=== PATIENT | male | born 1990 | race African-American/Black ===

== ENCOUNTER 2020-03-28 14:53 | Emergency (ER) | payer BC ==
[2020-03-28] MEDS ORDERED: Sodium Chloride 0.9% 10 ML Syringe FLUSH PRN (15:25)
[2020-03-28] MEDS ORDERED: diphenhydrAMINE 50 MG/ML SDV IVPUSH ONE (15:25)
[2020-03-28] MEDS ORDERED: Ketorolac 30 MG/ML SDV IVPUSH ONE (15:25)
[2020-03-28] MEDS ORDERED: Ondansetron 4 MG/2 ML SDV IVPUSH ONE (15:26)
[2020-03-28] MEDS ORDERED: Sodium Chloride 0.9% 1,000 ML IV SCH (15:30)
--- NOTE | 2020-03-28 15:45 | EDM.PDOC ---
ED HPI GENERAL MEDICAL PROBLEM - General Chief Complaint: Headache Stated Complaint: HEADACHE Time Seen by Provider: 03/28/20 15:09 Source of Information: Reports: Patient History Limitations: Reports: No Limitations - History of Present Illness INITIAL COMMENTS - FREE TEXT/NARRATIVE: Is a 30-year-old male who presents to the emergency department with complaints of the course of last month, with worsening symptoms today. Patient describes his headaches as throbbing in nature. He states over the last month he has been getting them on a daily basis. Symptoms usually last about 30 minutes then go away but may recur numerous times throughout the day. He also describes photophobia but denies any vision changes. Denies phonophobia, nausea, vomiting, or dizziness. He states that today his symptoms have been more constant. He has had a headache since awaking this morning. He went to work and his boss sent him home. He was seen in the walk-in clinic at [facility] [address] scan was done at that time and found to be normal. States he received injection of Toradol which helped for a while but then symptoms returned. He has been taking [id number] Excedrin with his last dose being around noon today. Patient states that he has had episodes like this in the past. He states that the age of 16 and then again at 23 years of age he went through episodes of recurrent headaches. CT scans were done on both those occasions and found to be normal. He denies ever seeing a neurologist. He does not currently have a primary care provider that he sees in [facility], however he is set up to see Aminah Ramsey at [facility] this coming Tuesday to establish care. 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 [No Known Home Meds] 03/28/20 [History] Acetaminophen/HYDROcodone [Armbrust 325-5 MG] 1 tab PO Q4H PRN #10 tablet 03/28/20 [Rx] Past Medical History - Past Health History Medical/Surgical History: Denies Medical/Surgical History Social & Family History - Family History Family Medical History: Noncontributory - Tobacco Use Smoking Status *Q: Never Smoker Second Hand Smoke Exposure: No - Caffeine Use Caffeine Use: Reports: None - Recreational Drug Use Recreational Drug Use: No ED ROS GENERAL - Review of Systems Review Of Systems: See Below Constitutional: Reports: No Symptoms. Denies: Fever, Chills, Weakness HEENT: Reports: No Symptoms. Denies: Vision Change Respiratory: Reports: No Symptoms Cardiovascular: Reports: No Symptoms Endocrine: Reports: No Symptoms GI/Abdominal: Reports: No Symptoms. Denies: Nausea, Vomiting : Reports: No Symptoms Musculoskeletal: Reports: No Symptoms Skin: Reports: No Symptoms Neurological: Reports: Headache, Other (Photophobia). Denies: Dizziness Psychiatric: Reports: No Symptoms Hematologic/Lymphatic: Reports: No Symptoms Immunologic: Reports: No Symptoms - Physical Exam Exam: See Below Exam Limited By: No Limitations General Appearance: Alert, WD/WN, No Apparent Distress Respiratory/Chest: No Respiratory Distress, Lungs Clear, Normal Breath Sounds, No Accessory Muscle Use, Chest Non-Tender Cardiovascular: Normal Peripheral Pulses, Regular Rate, Rhythm, No Edema, No Gallop, No JVD, No Murmur, No Rub Neuro Exam (Abbreviated): Alert, Oriented, CN II-XII Intact, Normal Cognition, Normal Gait, Normal Reflexes, No Motor/Sensory Deficits Psychiatric: Normal Affect, Normal Mood Skin Exam: Warm, Dry, Intact, Normal Color, No Rash Course - Vital Signs Last Recorded V/S: Last Vital Signs Temp 98.6 F 03/28/20 15:03 Pulse 93 03/28/20 15:03 Resp 14 03/28/20 15:03 BP 148/58 H 03/28/20 15:03 Pulse Ox 96 03/28/20 15:03 - Orders/Labs/Meds Orders: Active Orders 24 hr Category Date Time Status Peripheral IV Care [RC] . DIRECTED Care 03/28/20 15:25 Active Peripheral IV Insertion Adult [OM.PC] Stat Oth 03/28/20 15:25 Ordered Labs: Laboratory Tests 03/28/20 03/28/20 Range/Units 15:30 15:30 WBC 9.64 H (4.23-9.07) K/mm3 RBC 6.02 (4.63-6.08) M/mm3 Hgb 17.5 (13.7-17.5) gm/dl Hct 51.5 H (40.1-51.0) % MCV 85.5 (79.0-92.2) fl MCH 29.1 (25.7-32.2) pg MCHC 34.0 (32.2-35.5) g/dl RDW Std Deviation 47.2 H (35.1-43.9) fL Plt Count 206 (163-337) K/mm3 MPV 9.8 (9.4-12.3) fl Neut % (Auto) 85.6 H (34.0-67.9) % Lymph % (Auto) 7.0 L (21.8-53.1) % Peach % (Auto) 6.7 (5.3-12.2) % Eos % (Auto) 0.3 L (0.8-7.0) Baso % (Auto) 0.2 (0.1-1.2) % Neut # (Auto) 8.25 H (1.78-5.38) K/mm3 Lymph # (Auto) 0.67 L (1.32-3.57) K/mm3 Peach # (Auto) 0.65 (0.30-0.82) K/mm3 Eos # (Auto) 0.03 L (0.04-0.54) K/mm3 Baso # (Auto) 0.02 (0.01-0.08) K/mm3 Manual Slide Review Abnormal smear Sodium 136 (136-145) mEq/L Potassium 4.0 (3.5-5.1) mEq/L Chloride 100 (98-107) mEq/L Carbon Dioxide 27 (21-32) mEq/L Anion Gap 13.0 (5-15) BUN 16 (7-18) mg/dL Creatinine 1.4 H (0.7-1.3) mg/dL Est Cr Clr Drug Dosing 76.00 mL/min Estimated GFR (MDRD) > 60 (>60) mL/min BUN/Creatinine Ratio 11.4 L (14-18) Glucose 102 (74-106) mg/dL Calcium 9.5 (8.5-10.1) mg/dL Total Bilirubin 0.3 (0.2-1.0) mg/dL AST 20 (15-37) U/L ALT 43 (16-63) U/L Alkaline Phosphatase 53 (46-116) U/L Total Protein 8.4 H (6.4-8.2) g/dl Albumin 4.3 (3.4-5.0) g/dl Globulin 4.1 gm/dL Albumin/Globulin Ratio 1.1 (1-2) Meds: Medications Discontinued Medications Generic Name Dose Route Start Last Admin Trade Name Freq PRN Reason Stop Dose Admin Diphenhydramine HCl 50 mg 03/28/20 15:25 03/28/20 15:41 Benadryl IVPUSH 03/28/20 15:26 50 mg ONETIME ONE Administration Sodium Chloride 1,000 mls @ 999 mls/hr 03/28/20 15:30 03/28/20 15:36 Normal Saline IV 999 mls/hr ASDIRECTED PARDIP Administration Ketorolac Tromethamine 30 mg 03/28/20 15:25 03/28/20 15:38 Toradol IVPUSH 03/28/20 15:26 30 mg ONETIME ONE Administration Ondansetron HCl 4 mg 03/28/20 15:26 03/28/20 15:38 Zofran IVPUSH 03/28/20 15:27 4 mg ONETIME ONE Administration Sodium Chloride 10 ml 03/28/20 15:25 03/28/20 15:32 Saline Flush FLUSH 10 ml ASDIRECTED PRN Administration Keep Vein Open - Re-Assessments/Exams Free Text/Narrative Re-Assessment/Exam: 03/28/20 1620 Blood work was found to be normal. Patient is feeling better after the medications given. Recommend that he continue [id number] Tylenol or ibuprofen. For pain not relieved by these measures, I will write for a short course of Armbrust. Emphasized the importance of him establishing care with a primary care provider for ongoing management and possible referral to neurology as needed. Discharge instructions as documented. Departure - Departure Time of Disposition: 16:28 Disposition: Home, Self-Care 01 Condition: Good Clinical Impression: Migraine - Discharge Information *PRESCRIPTION DRUG MONITORING PROGRAM REVIEWED*: Yes *COPY OF PRESCRIPTION DRUG MONITORING REPORT IN PATIENT JIM: No Prescriptions: Acetaminophen/HYDROcodone [Armbrust 325-5 MG] 1 tab PO Q4H PRN #10 tablet PRN Reason: Pain Instructions: Recurrent Migraine Headache, [id number] Referrals: Aminah Ramsey SAFETY ADVISOR [Ordering Only Provider] - Forms: ED Department Discharge, ED Return to Work/School Form Additional Instructions: You were seen in the emergency department today for a headache which is been present off and on over the last month. While in the ER he received a liter of IV fluids, Toradol, Benadryl, and Zofran. This did improve your symptoms. Recommend that you continue to use [id number] Tylenol or ibuprofen. For pain not relieved by these measures, a prescription for Armbrust has been sent to [facility]. Take this medication only as prescribed. Do not drive or work for 12 hours after using this medication as it is narcotic and can be sedating. Recommend that you keep your appointment as scheduled with Aminah Ramsey NP on Tuesday at [facility]. Return to the ER as needed. Sepsis Event Note (ED) - Evaluation Sepsis Screening Result: No Definite Risk - Focused Exam Vital Signs: Vital Signs Temp Pulse Resp BP Pulse Ox 03/28/20 15:03 98.6 F 93 14 148/58 H 96 - My Orders Last 24 Hours: My Active Orders 03/28/20 15:25 Peripheral IV Care [RC] . DIRECTED Peripheral IV Insertion Adult [OM.PC] Stat - Assessment/Plan Last 24 Hours: My Active Orders 03/28/20 15:25 Peripheral IV Care [RC] . DIRECTED Peripheral IV Insertion Adult [OM.PC] Stat
== END 2020-03-28 16:45 | disposition home or self-care (01) ==
LOC: JD.ED 14:53
DX: G43.909 Migraine, unspecified, not intractable, without status migrainosus (principal)
CPT/HCPCS: 36415; 80053; 85025; 96374; 96375; 99284; J1200; J1885; J2405; J7030; 99283